=== PATIENT | female | born 1965 | race Caucasian/White ===

== ENCOUNTER 2016-12-13 15:24 | Outpatient (CLI) | payer OTHER ==
[2016-12-13 16:05] LABS: BASOPHILS % 0.8 (0.0-1.5); EOSINOPHILS % 4.4 % (0.0-6.8); LYMPHOCYTES # 1.9 # k/uL (0.6-4.0); MEAN CORPUSCULAR HEMOGLOBIN 29.3 pg (28.0-34.0); MONOCYTES # 0.2 # k/uL (0.0-0.9); MONOCYTES % 4.1 % (0.0-11.0); NEUTROPHILS # 2.8 # k/uL (1.4-7.7)
[2016-12-13 16:15] LABS: eGFR (African) > 60; eGFR (Non-African) > 60
[2016-12-13 16:18] LABS: CREATINE KINASE MB 1.4 ng/mL (0.3-5.0)
--- NOTE | 2016-12-14 06:42 | Diagnostic Imaging Report ---
Report Submission Date: Dec 13, 2016 4:10:08 PM CHIMNEY BUILDER Patient ~ Study Name: KISHOR ROCHA ~ Date: Dec 13, 2016 3:46:42 PM CHIMNEY BUILDER ~ Modality Type: CR Gender: F ~ Description: CHEST : 65 ~ Institution: [facility] Physician: POPEYE SCHNEIDER ~ ~ ~ ~ Pa and lateral chest Clinical history : Chest pain Technique pa and lateral upright Findings: The lung white are clear. I see no hilar or mediastinal mass. There is no pleural effusion or lesion of the bony thorax. Impression: No acute pulmonary disease ~ Electronically signed on Dec 13, 2016 4:10:08 PM CHIMNEY BUILDER by: Kyler CASTREJON
== END 2016-12-13 15:30 ==
LOC: RT 15:24
PROVIDERS: ATTEND Family Medicine
DX: R07.89 Other chest pain (principal); Z13.220 Encounter for screening for lipoid disorders
CPT/HCPCS: 36415; 71020; 80053; 80061; 82550; 82553; 84484; 85025